=== PATIENT | female | born 1980 | race Asian ===

== ENCOUNTER 2018-06-07 18:56 | Emergency (ER) | payer SELFPAY ==
[2018-06-07 18:56] VITALS: BP 91/62; PULSE 91; RESP 16; TEMP 36.8; O2SAT 96; BMI 23.3
--- NOTE | 2018-06-07 19:13 | ED.VISSUMM ---
- ER Visit Summary Date of Service: 06/07/18 Chief Complaint: Cough History of Present Illness: The patient is a 38 F presenting with cough. She states this started 3 days ago. She has had temperatures up to 101 at home. She has a dry cough. She states initially she had a sore throat but this has now resolved. She initially denies sick contacts but she was recently on a plane and she works at [employer]. She denies chest pain or shortness of breath. She is not a smoker. Physical Examination: Vitals are stable. Patient is afebrile. Alert no acute distress. Pulse ox 96% on room air. HEENT exam is unremarkable. Neck is supple. No meningismus Lungs are clear and equal bilaterally. Heart is regular rate and rhythm. Abdomen is soft nontender nondistended. Extremities are unremarkable. Skin is warm and dry. No rash No focal neurologic deficit. Remainder of exam is unremarkable. Emergency Department Course and Treatment: Chest x-ray shows no acute process. Influenza A+. On reevaluation, she is resting comfortably. Advised to continue Tylenol or Motrin for fever. Advised to follow-up with primary care physician. Advised return to ED for worsening complaints. Disposition: Discharge home Impression: Influenza This note was generated with [employer] dictation software. It may contain incorrect words, spelling, and punctuation that were not noted in review of the chart prior to signing ED Disposition - Plan for ED Patient: Instructions: ED Flu Referrals: Maxim Echevarria III, MD [STAFF PHYSICIAN] -
--- NOTE | 2018-06-07 19:30 | RAD_ITS ---
HISTORY: COUGH, FEVER, SORE THROAT FOR THREE DAYS EXAM: XR Chest 1 View: COMPARISON: None FINDINGS: # of images incl. paperwork: 1 LINES/DEVICES: None. LUNGS: Radiographically clear. No consolidation, edema or effusion. No pneumothorax. MEDIASTINUM AND CARDIOVASCULAR STRUCTURES: Cardiac silhouette not enlarged. Central airways and mediastinal contour are unremarkable. BONES AND SOFT TISSUES: Unremarkable. RAD/Chest 1 View (Portable) IMPRESSION: No radiographic evidence of acute cardiopulmonary disease. at 2016 Reported and signed by: Dilshad Mcgarry MD Electronically Signed: Dilshad Mcgarry, at 20:15 EST Tel , Service support ,
--- NOTE | 2018-06-07 20:49 | ED.RN ---
DR OVALLES NOTIFIED OF FLU A + RESULTS
--- NOTE | 2018-06-07 20:57 | ED.DEP ---
ED Disposition - Plan for ED Patient: Instructions: ED Flu Referrals: Maxim Echevarria III, MD [STAFF PHYSICIAN] -
== END 2018-06-07 21:15 | disposition home or self-care (01) ==
LOC: ED 19:31
PROVIDERS: Emergency Provider Emergency Medicine
DX: J11.1 Influenza due to unidentified influenza virus with other respiratory manifestations (principal)
CPT/HCPCS: 71045; 87804; 99282

== ENCOUNTER 2021-01-30 19:42 | Emergency (ER) | payer BC, SELFPAY ==
[2021-01-30 19:42] VITALS: BP 115/78; PULSE 108; RESP 20; TEMP 36.2; O2SAT 90; BMI 28.2
--- NOTE | 2021-01-30 20:05 | RAD_ITS ---
INDICATION: cough EXAMINATION/TECHNIQUE: X-RAY - XR Chest 1 View COMPARISON: 06/07/2018. FINDINGS: Diffuse bilateral interstitial and airspace opacities. The cardiomediastinal silhouette is unremarkable. No pleural effusion or pneumothorax. No acute osseous abnormalities. RAD/Chest 1 View (Portable) IMPRESSION: Diffuse bilateral interstitial and airspace opacities concerning for pneumonia. Electronically Signed: Kaiser Palm MD at 20:50 EDT Tel , Service support ,
[2021-01-30 20:18] LABS: Absolute Lymphocyte Count 0.78 X10^3/uL (0.83-4.51); Absolute Neutrophil Count 2.3 X10^3/uL (2.0-7.7); Basophil# 0.01 X10^3/uL; Basophil% 0.3 % (0-1); Eosinophil# 0.01 X10^3/uL; Eosinophils% 0.3 % (0-5); Hematocrit 42.9 % (37-47); Hemoglobin 14.3 g/dL (12.0-15.0); Lymphocyte # 0.78 X10^3/ul (0.83-4.51); Lymphocyte % 22.9 % (19-41); Mean Corp Hgb Conc 33.3 g/dL (32-36); Mean Corpuscular Hgb 31.1 pg (27.0-32.0); Mean Corpuscular Volume 93.3 fL (81-99); Mean Platelet Vol. 9.6 fl (6.2-12.0); Monocyte# 0.28 X10^3/uL; Monocyte% 8.2 % (0-10); NRBC Flagged by Analyzer 0 % (0-5); Neutrophil # 2.31 X10^3/uL (2.7-7.7); POSITIVE MORPHOLOGY YES; Platelet Count 233 K/mm3 (150-450); RBC Distribution Width SD 41.4 fl (35.1-43.9); White Blood Count 3.4 K/mm3 (4.4-11.0)
[2021-01-30 20:19] LABS: Differential Indicated SCAN CRITERIA MET
[2021-01-30 20:35] LABS: ALB/GLOB Ratio 0.7 RATIO (0.9-2.4); AST(SGOT) 202 U/L (15-37); Alanine Aminotransfer ALT/SGPT 201 U/L (13-56); Albumin, Serum 3.3 g/dL (3.2-5.0); Alkaline Phosphatase 181 U/L (45-117); Anion Gap 9 (5-15); BUN 9 mg/dL (7-18); Calcium,Total 8.7 mg/dL (8.5-10.1); Chloride 102 mmol/L (98-107); Creatinine, Serum 0.64 mg/dL (0.55-1.02); EST Glomerular Filtration Rate 108 mL/min (>60); Est Glom Filt Rate - Afr Amer 131 mL/min (>60); Estimated Creatinine Clearance 109.39 ml/min; Glucose 130 mg/dL (74-106); Potassium 3.2 mmol/L (3.5-5.1); Protein, Total 8.3 g/dL (6.4-8.2); Sodium Level 138 mmol/L (136-145)
[2021-01-30 20:38] VITALS: O2SAT 93
[2021-01-30] MEDS: Acetaminophen 325 MG Tablet 650 MG PO (20:38)
[2021-01-30 20:43] LABS: Differential Comment SCANNED
--- NOTE | 2021-01-30 21:06 | EDS_ITS ---
HPI History of Present Illness Chief Complaint: Shortness of Breath Detail of Chief Complaint: Viral-like symptoms consistent with COVID-19 infection Informant: patient Onset/Context/Timing Onset: Days (Onset of illness January 25) Context: Sudden Onset Timing: Continuous and Waxes and wanes Quality: Myalgias, arthralgias, headache, respiratory symptoms and GI symptoms Current Severity: Moderate Maximum Severity: Severe Worsened by: Nothing Relieved by: Nothing Associated Symptoms Associated Symptoms: Covid-like symptoms Narrative Narrative: Patient is a 40-year-old woman who states her son was diagnosed with Covid. Her symptoms started on January 25. She complains of headache, runny nose, nasal congestion, sore throat, loss of taste and smell, shortness of breath, nonproductive cough. She also complains of GI symptoms with diarrhea. She denies dysuria, frequency, urgency or hematuria. She denies rash. She denies trouble with her balance. She denies paresthesia, anesthesia or motor weakness. Prior similar symptoms: No Recent Illness/Hospitalization: No PFSH PFSH Medical History COVID Medical History no medical history Home Medications NK 06/07/18 [History Last Taken Unknown] Allergy/AdvReac Type Severity Reaction Status Date / Time No Known Allergies Allergy Verified 01/30/21 19:42 Surgical History no surgical history Social History (Updated 01/30/21 @ 21:[address] Tobias Marley MD) household members: spouse and children Smoking Status: Never smoker alcohol intake: current alcohol intake frequency: other substance use type: does not use ROS ROS ED Constitutional Constitutional ED: Reports chills, fever(s) and sweats; Denies weight loss Eyes Eyes: Denies blurry vision, change in vision or diplopia ENT ENT ED: Reports rhinorrhea and sore throat; Denies ear pain Cardiovascular Cardiovascular: Reports chest pain; Denies orthopnea, palpitations, paroxysmal nocturnal dyspnea or racing heartbeat Respiratory/Chest Respiratory/Chest: Reports cough, dyspnea and dyspnea on exertion; Denies orthopnea, paroxysmal nocturnal dyspnea or sputum Gastrointestinal Gastrointestinal: Reports abdominal pain, diarrhea and nausea; Denies constipation or melena Genitourinary Genitourinary ED: Denies dysuria, hematuria or urinary frequency Musculoskeletal Musculoskeletal: Reports arthralgias and myalgias; Denies back pain or neck pain Integumentary Reports rash Neurologic Neurologic: Reports headache(s) and weakness; Denies paresthesias Endocrine Endocrinology: Denies polydipsia, polyphagia or polyuria Allergic/Immunologic Allergic/Immunologic ED: Denies mouth swelling, tongue swelling or urticaria EXAM Physical Exam Const Vital Signs: 01/30/21 19:42 01/30/21 20:38 Temperature 97.2 F L Temperature Source Temporal Pulse Rate 108 H Respiratory Rate 20 H Respiratory Effort Normal Blood Pressure 115/78 Blood Pressure Mean 90 Pulse Ox 90 Oxygen Delivery Method Room Air Room Air Positive well nourished and well developed General Appearance ED: well developed and other Patient appears ill but not toxic. ; Negative for cyanotic, diaphoretic or NAD HEENT Reports TM's clear and dry mucous membranes HEENT Narrative: Nares patent. Ears normal. Head is atraumatic normocephalic. Tympanic Membrane ED: Yes TM's clear Mouth ED: Yes dry mucous membranes Mouth: dry mucous membranes Eyes PERRL and EOMs intact bilaterally General Eye ED: Negative for pale conjunctiva or scleral icterus Neck no lymphadenopathy, supple and no JVD Chest Wall palpation of chest normal Resp normal respiratory effort Auscultation: rales bilateral mid and lower Cardio regular rhythm, S1 normal heart sound, S2 normal heart sound and no murmurs Rate: tachycardic GI normal to inspection, nondistended, normoactive bowel sounds and non-tender Palpation: soft Back/Spine no CVA tenderness Cervical Spine: Negative for cervical spine tenderness Thoracic Spine / Upper Back: Negative for thoracic spinal tenderness or paraspinal muscle tenderness Extremity normal to inspection General Extremety ED: Negative for edema or tenderness General Extremity: Negative for edema Neuro oriented x3, CN's II-XII intact bilaterally and no sensory deficits noted Sensorium / Orientation: alert Motor Exam: strength 5/5 throughout Psych mental status grossly normal Skin no rashes or lesions noted and no wounds MDM MDM MDM Narrative Medical decision making narrative: Chest x-ray was obtained and appropriate blood work to evaluate for Covid pneumonia. Clinically she has Covid pneumonia. Her son was positive for Covid. She has not been tested. She has all the appropriate symptoms for Covid. She presently is not hypoxic. Her symptoms started last January 25. Lab Data Attestation: I reviewed the patient's lab results. Lab results narrative: Blood work is remarkable for neutropenia consistent with Covid. Transaminases elevated which occurs with Covid. Lactate is normal. She did not desaturate with ambulation. Plan is discharged home with appropriate home-going instructions and self-care. She was referred to monoclonal antibiotic therapy since her symptoms started 5 days ago. Labs: Laboratory Results - last 24 hr 01/30/21 01/30/21 01/30/21 20:00 20:00 20:25 WBC 3.4 L RBC 4.60 Hgb 14.3 Hct 42.9 MCV 93.3 MCH 31.1 MCHC 33.3 RDW Std Deviation 41.4 RDW Coeff of Trace 12.0 Plt Count 233 MPV 9.6 Immature Gran % (Auto) 0.300 Neut % (Auto) 68.0 Lymph % (Auto) 22.9 [place] % (Auto) 8.2 Eos % (Auto) 0.3 Baso % (Auto) 0.3 Absolute Neuts (auto) 2.3 Absolute Lymphs (auto) 0.78 L Nucleated RBC % 0 Differential Comment SCANNED Sodium 138 Potassium 3.2 L Chloride 102 Carbon Dioxide 27.0 Anion Gap 9 BUN 9 Creatinine 0.64 Estim Creat Clear Calc 109.39 Est GFR (MDRD) Af Amer 131 Est GFR (MDRD) Non-Af 108 BUN/Creatinine Ratio 14.0 Glucose 130 H Lactic Acid 0.7 Calcium 8.7 Total Bilirubin 0.40 AST 202 H ALT 201 H Alkaline Phosphatase 181 H Total Protein 8.3 H Albumin 3.3 Globulin 5.0 H Albumin/Globulin Ratio 0.7 L Radiography Chest X-Ray - ED: 1 View and Read by ED Physician (Single view portable chest x- ray interpreted by pa at 2041 reveals bilateral interstitial infiltrates consistent with Covid. Clinically patient has Covid.) Diagnostic Testing: Clinical Impression(s) from Imaging Studies Chest X-Ray 01/30/21 20:05 IMPRESSION: Diffuse bilateral interstitial and airspace opacities concerning for pneumonia. Electronically Signed: Kaiser Palm MD at 20:50 EDT Tel , Service support , Discharge Plan Triage Chief Complaint: Shortness of Breath ED Provider: Tobias Marley Dx/Rx/DC Orders Clinical Impression: Pneumonia due to 2019-nCoV Instructions: Coronavirus Disease 2019 (COVID-19): Caring for Yourself or Others Prescriptions: No Action NK RF: 0 Primary Care Provider: Care Physician,No Primary Referrals: Romana Escamilla DO [STAFF PHYSICIAN] - As Needed Care Physician,No Primary [Primary Care Provider] - Disposition Disposition: Home, Self Care
[2021-01-30 21:28] LABS: Lactic Acid 0.7 mmol/L (0.4-1.9)
[2021-01-30 21:40] VITALS: O2SAT 95
[2021-01-30 21:55] VITALS: BP 112/65; PULSE 103; RESP 16; O2SAT 95
== END 2021-01-30 21:55 | disposition home or self-care (01) ==
PROVIDERS: Emergency Provider Emergency Medicine
DX: U07.1 COVID-19 (principal); J12.82 Pneumonia due to coronavirus disease 2019
CPT/HCPCS: 36415; 71045; 80053; 83605; 85025; 87040; 87426; 99285; J7030; A4216

== ENCOUNTER 2022-12-07 14:26 | Emergency (ER) | payer BC, SELFPAY ==
[2022-12-07 14:27] VITALS: BP 119/89; PULSE 79; RESP 14; TEMP 36.6; O2SAT 100; BMI 25.2
--- NOTE | 2022-12-07 15:20 | EX.ED.DYSGE1 ---
HPI History of Present Illness Chief Complaint: Chest Other Informant: patient Narrative Narrative: Patient presents with back pain. Triage mentions chest pain but she is denying this to me. She states for about a week she has been sore on her back. It is lower back but it does move up toward the chest. But it really just moves to the CVA area. Not into the chest. She is not having chest pain. No shortness of breath. No coughing. No lightheadedness. She states sometimes her urine is bubbly. But no odor. Its not darker or safety coordinator colored. Its not more frequent and there is no dysuria. No fevers or chills. No abdominal pain. No trouble eating drinking or moving bowels. She is concerned that she needs her creatinine checked for kidney failure. She is concerned of this after doing Internet searches on causes of her symptoms. However, she also works at [employer] and does a lot of lifting of crates. When she lifts crates and twists her back is sore. This seems to aggravate it and bring it on. No acute trauma. No travels. Patient has no known prior medical problems. She does report a high fasting sugar recently at 117 that is pending further work-up. But she has not treated for or diagnosed with diabetes. [facility] Medical History COVID Home Medications NK 06/07/18 [History Last Taken Unknown] Allergy/AdvReac Type Severity Reaction Status Date / Time No Known Allergies Allergy Verified 12/07/22 14:27 Social History household members: spouse and children Smoking Status: Never smoker alcohol intake: current alcohol intake frequency: other substance use type: does not use ROS ROS ED ROS Narrative A complete review of systems was performed and is negative except as documented in the history of present illness. Some specific details below. Constitutional: No recent fevers or chills. No malaise. She states she overall feels just fine. EYE: No visual complaints or pain. ENT: No difficulty swallowing. No swelling. No pain. No trouble eating CV: No chest pain or palpitations. Respiratory: No dyspnea. No hemoptysis. No difficulty taking breaths. GI: No nausea vomiting change in bowel habits diarrhea constipation or abdominal pain or bloating. : No frequency dysuria or hematuria. She describes her urine sometimes as bubbly. But its not dark. Musculoskeletal: No recent trauma. No pains other than the sore back as above. Skin: No rash. Nondiaphoretic. Neuro: No weakness or numbness. Endocrine: No polyuria or polydipsia. EXAM Physical Exam Narrative Exam Narrative: CONSTITUTIONAL: Patient is nontoxic in appearance. The patient looks comfortable. HEENT: No notable trauma. Mucous membranes moist. No sinus tenderness. No indication of pain with swallowing. EYES: No conjunctival injection. No proptosis. No icterus CARDIOVASCULAR: Regular rate. Regular rhythm. No notable murmur. No JVD. RESPIRATORY: No respiratory distress. Breathing is unlabored. No wheezes. No rhonchi. No rales. No pain at all with a deep breath. When palpating her back, her discomfort is clearly below the chest area. GASTROINTESTINAL: Not distended. Bowel sounds are normal. No tenderness. No guarding. No rebound. No palpable mass. No bruit. Overall very benign exam. GENITOURINARY: No tenderness over the bladder. Although she has no focal CVA tenderness she has some mild paraspinal tenderness from that area down to her lower lumbar on both sides. MUSCULOSKELETAL: Atraumatic. No peripheral edema. No cord. No tenderness along the deep venous system. No asymmetry. She does have some paraspinal lumbar tenderness. But no swelling or rash. NEUROLOGICAL: Patient is alert and appropriate. No focal deficit noted. SKIN: No noted rashes. No diaphoresis. PSYCHIATRIC: Patient is calm. Mood is appropriate. Const Vital Signs: 12/07/22 14:27 12/07/22 15:31 Temperature 98 F Temperature Source Temporal Pulse Rate 79 Respiratory Rate 14 Respiratory Effort Normal Non-Labored Blood Pressure 119/89 H Blood Pressure Mean 99 Pulse Ox 100 Oxygen Delivery Method Room Air MDM MDM MDM Narrative Medical decision making narrative: CBC is normal. Electrolytes are normal other than mildly high BUN to creatinine ratio that can be treated with oral fluid intake and this was discussed with the patient. Patient's liver function test was normal. We checked this because the patient was describing bubbly urine and sometimes foaming or bubbling of the urine curve with high liver function test and abnormality. Patient's urine is clean. Patient has no sign of acute medical condition. I think her back by history and exam is musculoskeletal. This was explained to the patient. She can follow-up with her primary physician. She should drink a little bit more free water. Lab Data Attestation: I reviewed the patient's lab results. Labs: Laboratory Results - last 24 hr 12/07/22 15:29 WBC 6.5 RBC 4.02 L Hgb 12.6 Hct 38.3 MCV 95.3 MCH 31.3 MCHC 32.9 RDW Std Deviation 42.8 RDW Coeff of Trace 12.3 Plt Count 326 MPV 9.4 Immature Gran % (Auto) 0.200 Neut % (Auto) 68.5 Lymph % (Auto) 22.5 [place] % (Auto) 6.7 Eos % (Auto) 1.9 Baso % (Auto) 0.2 Absolute Neuts (auto) 4.4 Absolute Lymphs (auto) 1.45 Nucleated RBC % 0 Sodium 138 Potassium 3.6 Chloride 107 Carbon Dioxide 24.0 Anion Gap 7 BUN 17 Creatinine 0.61 Estim Creat Clear Calc 112.47 Est GFR (MDRD) Af Amer 137 Est GFR (MDRD) Non-Af 113 BUN/Creatinine Ratio 27.7 H Glucose 96 Calcium 8.8 Total Bilirubin 0.20 Direct Bilirubin 0.09 AST 20 ALT 36 Alkaline Phosphatase 63 Total Protein 7.6 Albumin 3.8 Globulin 3.8 Urine Color Yellow Urine Clarity Clear Urine pH 6.0 Ur Specific [place] 1.010 Urine Protein Negative Urine Glucose (UA) Normal Urine Ketones 5 H Urine Occult Blood Negative Urine Nitrite Negative Urine Bilirubin Negative Urine Urobilinogen Normal Ur Leukocyte Esterase Negative Urine RBC 0 SEEN Urine WBC 0 SEEN Ur Squamous Epith Cells 0 SEEN Urine Bacteria 0 SEEN Urine Mucus 0 SEEN Discharge Plan Triage Chief Complaint: Chest Other ED Provider: Cooper Burns Dx/Rx/DC Orders Clinical Impression: Feared condition not demonstrated, Mild dehydration Instructions: Dehydration Prescriptions: No Action NK Referrals: Kayleen Aldana MD [Med Staff - [employer] [employer]] - As Needed Care Physician,No Primary [Non-Staff] - Activity Restrictions/Additional Instructions: Follow-up as needed with your doctor or Dr. Aldana as above. Disposition Disposition: Home, Self Care
[2022-12-07 15:34] LABS: Bacteria 0 SEEN /hpf (None Seen); Mucous, Urine 0 SEEN /hpf (<or=2+); Red Blood Cells-Urine 0 SEEN /hpf (0-5); Squamous Epithelial Cells - UA 0 SEEN /hpf (5-10); White Blood Cells 0 SEEN /hpf (0-5)
[2022-12-07 15:37] LABS: Color, Urine Yellow (Yellow); Glucose, Dipstick Normal (Normal); Ketone-Dipstick 5 mg/dl (Negative); Leukocyte Esterase-Dipstick Negative /ul (Negative); Nitrite-Dipstick Negative (Negative); Occult Blood-Urine Negative /ul (Negative); Protein-Dipstick Negative (Negative); Urine Bilirubin Dipstick Negative (Negative); Urine Clarity Clear (Clear); Urine Urobilinogen Normal (Normal)
[2022-12-07 15:46] LABS: Absolute Lymphocyte Count 1.45 X10^3/uL (0.83-4.51); Absolute Neutrophil Count 4.4 X10^3/uL (2.0-7.7); Basophil# 0.01 X10^3/uL; Basophil% 0.2 % (0-1); Eosinophil# 0.12 X10^3/uL; Eosinophils% 1.9 % (0-5); Hematocrit 38.3 % (37-47); Hemoglobin 12.6 g/dL (12.0-15.0); Lymphocyte # 1.45 X10^3/ul (0.83-4.51); Lymphocyte % 22.5 % (19-41); Mean Corp Hgb Conc 32.9 g/dL (32-36); Mean Corpuscular Hgb 31.3 pg (27.0-32.0); Mean Corpuscular Volume 95.3 fL (81-99); Mean Platelet Vol. 9.4 fl (6.2-12.0); Monocyte# 0.43 X10^3/uL; Monocyte% 6.7 % (0-10); NRBC Flagged by Analyzer 0 % (0-5); Neutrophil # 4.43 X10^3/uL (2.7-7.7); Neutrophil % 68.5 % (47-70); Platelet Count 326 K/mm3 (150-450); RBC Distribution Width CV 12.3 % (11.6-14.6); RBC Distribution Width SD 42.8 fl (35.1-43.9); Red Blood Count 4.02 M/mm3 (4.2-5.4); White Blood Count 6.5 K/mm3 (4.4-11.0)
[2022-12-07 15:56] LABS: AST(SGOT) 20 U/L (15-37); Alanine Aminotransfer ALT/SGPT 36 U/L (13-56); Albumin, Serum 3.8 g/dL (3.2-5.0); Alkaline Phosphatase 63 U/L (45-117); Anion Gap 7 (5-15); BUN 17 mg/dL (7-18); BUN/Creat Ratio 27.7 RATIO (10-20); Bilirubin, Direct 0.09 mg/dL (0.00-0.30); Calcium,Total 8.8 mg/dL (8.5-10.1); Chloride 107 mmol/L (98-107); Creatinine, Serum 0.61 mg/dL (0.55-1.02); EST Glomerular Filtration Rate 113 mL/min (>60); Est Glom Filt Rate - Afr Amer 137 mL/min (>60); Estimated Creatinine Clearance 112.47 ml/min; Globulin 3.8 g/dL (2.2-4.2); Glucose 96 mg/dL (74-106); Potassium 3.6 mmol/L (3.5-5.1); Protein, Total 7.6 g/dL (6.4-8.2); Sodium Level 138 mmol/L (136-145)
== END 2022-12-07 16:34 | disposition home or self-care (01) ==
PROVIDERS: Emergency Provider Emergency Medicine; Visit Provider Emergency Medicine
DX: M54.9 Dorsalgia, unspecified (principal); E86.0 Dehydration; Z71.1 Person with feared health complaint in whom no diagnosis is made
CPT/HCPCS: 80048; 80076; 81001; 85025; 99285

== ENCOUNTER → 2023-08-02 | Outpatient (CLI) | payer BC, SELFPAY ==
[2023-08-02 17:50] LABS: Absolute Lymphocyte Count 1.53 X10^3/uL (0.83-4.51); Absolute Neutrophil Count 3.9 X10^3/uL (2.0-7.7); Basophil# 0.01 X10^3/uL; Basophil% 0.2 % (0-1); Eosinophil# 0.07 X10^3/uL; Eosinophils% 1.2 % (0-5); Hematocrit 41.4 % (37-47); Hemoglobin 13.5 g/dL (12.0-15.0); Lymphocyte # 1.53 X10^3/ul (0.83-4.51); Lymphocyte % 26.3 % (19-41); Mean Corp Hgb Conc 32.6 g/dL (32-36); Mean Corpuscular Hgb 30.9 pg (27.0-32.0); Mean Corpuscular Volume 94.7 fL (81-99); Monocyte# 0.28 X10^3/uL; Monocyte% 4.8 % (0-10); NRBC Flagged by Analyzer 0 % (0-5); Neutrophil % 67.2 % (47-70); Platelet Count 316 K/mm3 (150-450); RBC Distribution Width CV 11.9 % (11.6-14.6); RBC Distribution Width SD 41.3 fl (35.1-43.9); Red Blood Count 4.37 M/mm3 (4.2-5.4); White Blood Count 5.8 K/mm3 (4.4-11.0)
[2023-08-02 18:03] LABS: ALB/GLOB Ratio 1.1 RATIO (0.9-2.4); AST(SGOT) 9 U/L (15-37); Alanine Aminotransfer ALT/SGPT 20 U/L (13-56); Albumin, Serum 4.4 g/dL (3.2-5.0); Alkaline Phosphatase 65 U/L (45-117); Anion Gap 8 (5-15); BUN 13 mg/dL (7-18); BUN/Creat Ratio 20.2 RATIO (10-20); Calcium,Total 8.7 mg/dL (8.5-10.1); Chloride 105 mmol/L (98-107); Cholesterol 198 mg/dL (200); Creatinine, Serum 0.64 mg/dL (0.55-1.02); EST Glomerular Filtration Rate 107 mL/min (>60); Est Glom Filt Rate - Afr Amer 129 mL/min (>60); Globulin 3.9 g/dL (2.2-4.2); Glucose 84 mg/dL (74-106); High Density Lipoprotein 60 mg/dL; Potassium 3.8 mmol/L (3.5-5.1); Protein, Total 8.3 g/dL (6.4-8.2); Sodium Level 138 mmol/L (136-145); Thyroid Stim Hormone (TSH) 2.67 uIU/mL (0.358-3.74); Triglycerides 50 mg/dL; Very Low Density Lipoprotein 10 mg/dL (5-40)
[2023-08-02 18:04] LABS: Vitamin D,25 Hydroxy 12.2 ng/mL
== END | disposition home or self-care (01) ==
LOC: MTLAB 15:24
PROVIDERS: PCP Family Medicine; Referring Provider Family Medicine; Visit Provider Family Medicine
DX: Z00.00 Encounter for general adult medical examination without abnormal findings (principal); Z13.220 Encounter for screening for lipoid disorders; Z13.1 Encounter for screening for diabetes mellitus
CPT/HCPCS: 36415; 80053; 80061; 82306; 84443; 85025

== ENCOUNTER → 2023-09-06 | Outpatient (CLI) | payer BC, SELFPAY ==
--- NOTE | 2023-09-06 14:07 | BI_ITS ---
MAMMOGRAPHY - UNILATERAL DIAGNOSTIC: LEFT BREAST REASON FOR EXAM: Female, 43 years old. Abnormal screening mammogram. PERTINENT HISTORY: Non-contributory. TECHNIQUE: Digital unilateral breast marianne (3D mammographic acquisition) in the CC and MLO projections. 2-D mediolateral oblique (MLO) and craniocaudad (CC) views of both breasts were obtained. CAD: Full Field Digital Mammography with Computer Added Detection was performed. COMPARISON: Comparison is made with prior outside examination dated August 14, 2023. FINDINGS: Breast Composition: The breasts are extremely dense, which lowers the sensitivity of mammography. There are no dominant masses or suspicious calcifications. No other significant abnormalities are identified. BI/DIAG MAMM W/CAD, UNILAT IMPRESSION: Stable unilateral diagnostic mammogram. Correlation with targeted ultrasound of the retroareolar region recommended. ASSESSMENT CATEGORY: BIRADS Category 0: Incomplete. Need additional imaging evaluation. A letter regarding these results will be sent to the patient by the facility within 30 days. Approximately 10% of breast cancers are not detected by mammography. A normal mammogram should not delay biopsy of a clinically suspicious abnormality. Electronically Signed: Fuentes Ley MD at 8:47 EDT ,
--- NOTE | 2023-09-06 14:26 | US_ITS ---
STUDY: ULTRASOUND BREAST - LEFT REASON FOR EXAM: Female, 43 years old. Abnormal screening mammogram. TECHNIQUE: Axial and longitudinal images of the LEFT breast were performed with a high resolution ultrasound transducer. # OF IMAGES: 59 COMPARISON: Comparison is made with prior mammogram done earlier today. FINDINGS: LEFT Breast: The medial half of the left breast was examined with ultrasound. There is an 8 mm x 9 mm x 3 mm cyst at the 9:00 position of the breast at 5 cm from the nipple. There is also evidence of a 5 mm x 5 mm x 3 mm cyst 7:00 position of the breast at 7 cm from the nipple. Incidental note is made of dilated retroareolar ducts. US/Breast Limited Unilateral IMPRESSION: 2 small cysts are seen at the 9:00 and 7:00 position of the breast as described. Dilated retroareolar ducts. ASSESSMENT CATEGORY: BIRADS Category 2: Benign. A letter regarding these results will be sent to the patient by the facility within 30 days. Electronically Signed: Fuentes Ley MD at 15:13 EDT ,
== END | disposition home or self-care (01) ==
PROVIDERS: PCP Family Medicine; Referring Provider Nurse Practitioner Family; Visit Provider Nurse Practitioner Family
DX: R92.8 Other abnormal and inconclusive findings on diagnostic imaging of breast (principal)
CPT/HCPCS: 76642; 77061; 77065; G0279

== ENCOUNTER → 2024-03-13 | Outpatient (CLI) | payer BC, SELFPAY ==
--- NOTE | 2024-03-13 16:31 | RAD_ITS ---
EXAM: XR LUMBOSACRAL SPINE, 2 OR 3 VIEWS CLINICAL INDICATION: back pain TECHNIQUE: Frontal and lateral views of the lumbar spine and sacrum. COMPARISON: No relevant prior studies available. FINDINGS: VERTEBRAE: Slight anterior spondylosis at the superior and inferior endplates of L3 and L4. The usual lordotic curvature is well-maintained. Preserved vertebral body height. No fracture. No significant facet arthropathy. DISC SPACES: Minimal disc space narrowing at L5-S1, uncertain chronicity. GASTROINTESTINAL TRACT: Unremarkable as visualized. Included bowel gas pattern is non-obstructive. RAD/Lumbar Spine 2 or 3 Views IMPRESSION: Minimal degenerative changes. Electronically Signed: Tina Stubbs MD at 22:01 EST ,
[2024-03-13 17:27] LABS: Absolute Lymphocyte Count 1.75 X10^3/uL (0.83-4.51); Absolute Neutrophil Count 3.2 X10^3/uL (2.0-7.7); Basophil# 0.03 X10^3/uL; Basophil% 0.5 % (0-1); Eosinophil# 0.15 X10^3/uL; Eosinophils% 2.7 % (0-5); Hematocrit 41.2 % (37-47); Hemoglobin 13.4 g/dL (12.0-15.0); Lymphocyte # 1.75 X10^3/ul (0.83-4.51); Lymphocyte % 31.8 % (19-41); Mean Corp Hgb Conc 32.5 g/dL (32-36); Mean Corpuscular Hgb 30.7 pg (27.0-32.0); Mean Corpuscular Volume 94.5 fL (81-99); Monocyte# 0.39 X10^3/uL; Monocyte% 7.1 % (0-10); NRBC Flagged by Analyzer 0 % (0-5); Neutrophil # 3.17 X10^3/uL (2.7-7.7); Neutrophil % 57.7 % (47-70); Platelet Count 357 K/mm3 (150-450); RBC Distribution Width CV 11.9 % (11.6-14.6); RBC Distribution Width SD 41.1 fl (35.1-43.9); Red Blood Count 4.36 M/mm3 (4.2-5.4); White Blood Count 5.5 K/mm3 (4.4-11.0)
[2024-03-13 17:49] LABS: Vitamin D,25 Hydroxy 31.3 ng/mL
[2024-03-13 17:58] LABS: Hemoglobin A1c 5.6 % (3.8-5.6)
[2024-03-13 17:59] LABS: AST(SGOT) 11 U/L (15-37); Alanine Aminotransfer ALT/SGPT 21 U/L (13-56); Albumin, Serum 4.4 g/dL (3.2-5.0); Alkaline Phosphatase 66 U/L (45-117); Anion Gap 11 (5-15); BUN 15 mg/dL (7-18); BUN/Creat Ratio 20.4 RATIO (10-20); Calcium,Total 9.2 mg/dL (8.5-10.1); Chloride 104 mmol/L (98-107); Cholesterol 202 mg/dL (200); Creatinine, Serum 0.74 mg/dL (0.55-1.02); EST Glomerular Filtration Rate 91 mL/min (>60); Est Glom Filt Rate - Afr Amer 111 mL/min (>60); Globulin 4.5 g/dL (2.2-4.2); Glucose 96 mg/dL (74-106); High Density Lipoprotein 57 mg/dL; Potassium 3.7 mmol/L (3.5-5.1); Protein, Total 8.9 g/dL (6.4-8.2); Sodium Level 137 mmol/L (136-145); Triglycerides 90 mg/dL; Very Low Density Lipoprotein 18 mg/dL (5-40)
== END | disposition home or self-care (01) ==
LOC: MTLAB 16:20
PROVIDERS: PCP Family Medicine; Referring Provider Family Medicine; Visit Provider Family Medicine
DX: M54.9 Dorsalgia, unspecified (principal); Z13.220 Encounter for screening for lipoid disorders; E55.9 Vitamin D deficiency, unspecified; Z13.1 Encounter for screening for diabetes mellitus
CPT/HCPCS: 36415; 72100; 80053; 80061; 82306; 83036; 84443; 85025

== ENCOUNTER → 2025-03-26 | Outpatient (CLI) | payer BC, SELFPAY ==
[2025-03-26 12:31] LABS: Hematocrit 39.3 % (37-47); Hemoglobin 12.9 g/dL (12.0-15.0); Mean Corp Hgb Conc 32.8 g/dL (32-36); Mean Corpuscular Volume 94.9 fL (81-99); Mean Platelet Vol. 9.6 fl (6.2-12.0); Platelet Count 324 K/mm3 (150-450); RBC Distribution Width CV 12.2 % (11.6-14.6); RBC Distribution Width SD 42.6 fl (35.1-43.9); Red Blood Count 4.14 M/mm3 (4.2-5.4); White Blood Count 3.7 K/mm3 (4.4-11.0)
[2025-03-26 13:25] LABS: AST(SGOT) 13 U/L (<=31); Alanine Aminotransfer ALT/SGPT 10 U/L (<=34); Albumin, Serum 4.4 g/dL (3.5-5.0); Alkaline Phosphatase 55 U/L (35-104); Anion Gap 9 (5-15); BUN 9 mg/dL (4-19); BUN/Creat Ratio 13.7 RATIO (10-20); Calcium,Total 8.9 mg/dL (7.6-11.0); Carbon Dioxide 24.6 mmol/L (21.0-32.0); Chloride 104 mmol/L (98-108); Cholesterol 170 mg/dL (<=200); Globulin 3.2 g/dL (2.2-4.2); Glucose 110 mg/dL (70-99); Low Density Lipoprotein Calc. 110 mg/dL; Potassium 3.9 mmol/L (3.3-5.1); Triglycerides 70 mg/dL; Very Low Density Lipoprotein 14 mg/dL (5-40); Vitamin D,25 Hydroxy 24.7 ng/mL (30-100); cholesterol:hdl ratio screen 3.63
== END | disposition home or self-care (01) ==
PROVIDERS: PCP Family Medicine; Referring Provider Family Medicine; Visit Provider Family Medicine
DX: Z00.00 Encounter for general adult medical examination without abnormal findings (principal); Z13.220 Encounter for screening for lipoid disorders; Z13.1 Encounter for screening for diabetes mellitus
CPT/HCPCS: 36415; 80053; 80061; 82306; 83036; 85027